=== PATIENT | female | born 1985 | race Caucasian/White ===

== ENCOUNTER 2018-10-18 11:02 | Emergency (ER) | payer OTHER ==
--- NOTE | 2018-10-18 11:18 | UC ---
Throat Pain/Nasal Quang HPI - HPI Summary HPI Summary: 32 yo female presents with right upper tooth pain for the last 3 days. She tells me that 3 days ago she had a tooth break in this area. She also admits that she has bad "gum disease" and does not see a dentist. Since 3 days ago she has had pain and swelling to the area of the fractured tooth. She is able to eat and drink, but has pain. Has been taking tylenol with good relief of pain. Denies fever, chills. - History of Current Complaint Stated Complaint: ORAL COMPLAINT Time Seen by Provider: 10/18/18 11:18 Hx Obtained From: Patient Onset/Duration: Sudden Onset Severity: Moderate Pain Intensity: 8 Pain Scale Used: 0-10 Numeric - Allergies/Home Medications Allergies/Adverse Reactions: Allergies Allergy/AdvReac Type Severity Reaction Status Date / Time Sulfa (Sulfonamide Allergy Rash Verified 10/18/18 11:28 Antibiotics) Home Medications: Home Medications Labetalol TAB* [Trandate TAB*] 1 tab PO BID 10/18/18 [History Confirmed 10/18/18 ] PMH/Surg Hx/FS Hx/Imm Hx - Additional Past Medical History Additional PMH: ovarian cancer Cardiovascular History: Hypertension - Surgical History Surgical History: Yes Surgery Procedure, Year, and Place: Tubal. C section - Family History Known Family History: Positive: Non-Contributory - Social History Occupation: Employed Full-time Lives: With Family Alcohol Use: Occasionally Substance Use Type: None Smoking Status (MU): Light Every Day Tobacco Smoker Type: Cigarettes Review of Systems All Other Systems Reviewed And Are Negative: Yes Constitutional: Positive: Negative Skin: Positive: Negative Eyes: Positive: Negative ENT: Positive: Dental Pain Respiratory: Positive: Negative Cardiovascular: Positive: Negative Neurological: Positive: Negative Psychological: Positive: Negative Physical Exam - Summary Physical Exam Summary: GENERAL: NAD. WDWN. No pain distress. SKIN: No rashes, sores, lesions, or open wounds. HEENT: Head: AT/NC Nose: Nasal mucosa pink and moist. NTTP maxillary and frontal sinus. Throat: Posterior oropharynx without exudates, erythema, or tonsillar enlargement. Uvula midline. NECK: Supple. Nontender. No lymphadenopathy. CHEST: No accessory muscle use. Breathing comfortably and in no distress. CV: Pulses intact. Cap refill <2seconds NEURO: Alert. PSYCH: Age appropriate behavior. Triage Information Reviewed: Yes Vital Signs: Vital Signs: Temp Pulse Resp BP Pulse Ox 98.1 F 84 14 167/112 98 10/18/18 11:21 10/18/18 11:21 10/18/18 11:21 10/18/18 11:21 10/18/18 11:21 Vital Signs Reviewed: Yes Dental: Positive: Percussion Tenderness @ - Tooth #2, Gross Decay/Caries @ - throughout, Dental Fracture @ - Tooth #2, Cellulitis @ - Tooth #2. Negative: Abscess @, Cervical Lymphadenopathy, Bleeding Throat Pain/Nasal Course/Dx - Course Course Of Treatment: Tooth #2 fracture with cellulitis possible early abscess. Will rx for amoxicillin and chlorhexidine rinse. She was provided with a list of local dentists and advised to f/u as soon as possible. Her BP is elevated today. She is having no headaches, dizziness, numbness, tingling, SOB, or chest pain. She take labetalol for her BP, but states she has not taken this over the past few days because it makes her nauseous and she is in pain. She has a prescription with her. I advised her to take her medication as directed and may take it with food to help prevent nausea. F/u with PCP for BP recheck within 4 weeks - go to the ED if she develops a headache, dizziness, numbness, SOB, or chest pain. Discussed with Dr. Maddox and he agrees with plan. - Differential Dx/Diagnosis Provider Diagnosis: Tooth fracture, Cellulitis of gingiva Discharge - Sign-Out/Discharge Documenting (check all that apply): Patient Departure All imaging exams completed and their final reports reviewed: No Studies - Discharge Plan Condition: Stable Disposition: HOME Prescriptions: Amoxicillin PO (*) [Amoxicillin 500 MG CAP*] 500 mg PO Q12H #14 cap Chlorhexidine MW 0.12% 473ML* [Peridex Mouth Wash 0.12%] 15 ml MT BID #1 btl Patient Education Materials: Toothache (ED) Forms: *Work Release Referrals: No Primary Care Phys,NOPCP [Primary Care Provider] - Additional Instructions: If you develop a fever, shortness of breath, chest pain, new or worsening symptoms - please call your PCP or go to the ED immediately. Your blood pressure was high at todays visit. Please see your primary provider within 4 weeks for recheck and re-evaluation. Please follow up with a dentist as soon as possible for further treatment of your dental pain - Billing Disposition and Condition Condition: STABLE Disposition: Home
[2018-10-18 11:27] VITALS: BP 167/112
== END 2018-10-18 11:41 | disposition home or self-care (01) ==
LOC: UCCORT 11:02
DX: S02.5XXA Fracture of tooth (traumatic), initial encounter for closed fracture (principal); X58.XXXA Exposure to other specified factors, initial encounter; Y92.9 Unspecified place or not applicable; K12.2 Cellulitis and abscess of mouth; K02.9 Dental caries, unspecified; I10 Essential (primary) hypertension; Z85.43 Personal history of malignant neoplasm of ovary; Z88.2 Allergy status to sulfonamides; F17.210 Nicotine dependence, cigarettes, uncomplicated
CPT/HCPCS: 99202; G0463

== ENCOUNTER 2018-11-22 07:55 | Emergency (ER) | payer OTHER ==
[2018-11-22 08:28] VITALS: BP 168/112
--- NOTE | 2018-11-22 08:58 | UC ---
Dental HPI - HPI Summary HPI Summary: dental pain x 1 month pain is 7 out of 10 constant worse with chewing and cold , better with Tylenol was seen at the [facility] one month ago , was placed on antibiotic, has an dentist appointment in 1 month no fever, no chills - History of Current Complaint Chief Complaint: UCDentalProblem Stated Complaint: MCLAIN,EAR/DENTAL COMPLAINT Time Seen by Provider: 11/22/18 08:34 Hx Obtained From: Patient Hx Last Menstrual Period: 2015 Onset/Duration: Gradual Onset, Lasting Days - 30, Still Present Severity: Moderate Pain Intensity: 10 Aggravating Factor(s): Cold, Chewing Alleviating Factor(s): OTC Meds - Allergies/Home Medications Allergies/Adverse Reactions: Allergies Allergy/AdvReac Type Severity Reaction Status Date / Time Sulfa (Sulfonamide Allergy Rash Verified 10/18/18 11:28 Antibiotics) Home Medications: Home Medications Acetaminophen [Tylenol] 2 tab PO Q2H PRN 11/22/18 [History Confirmed 11/22/18] PMH/Surg Hx/FS Hx/Imm Hx - Additional Past Medical History Additional PMH: hx of ovarian cancer Cardiovascular History: Hypertension - Surgical History Surgical History: Yes Surgery Procedure, Year, and Place: Tubal. C section - Family History Known Family History: Positive: Hypertension, Non-Contributory - Social History Alcohol Use: Weekly Substance Use Type: None Smoking Status (MU): Light Every Day Tobacco Smoker Type: Cigarettes Amount Used/How Often: 4 cigs/day Review of Systems All Other Systems Reviewed And Are Negative: Yes Constitutional: Positive: Negative Skin: Positive: Negative Eyes: Positive: Negative ENT: Positive: Dental Pain Respiratory: Positive: Negative Cardiovascular: Positive: Negative Is Patient Immunocompromised?: No Physical Exam Triage Information Reviewed: Yes Appearance: Well-Appearing, No Pain Distress, Well-Nourished Vital Signs: Initial Vital Signs Temp 98.6 F 11/22/18 08:14 Pulse 79 11/22/18 08:14 Resp 18 11/22/18 08:14 BP 168/112 11/22/18 08:14 Pulse Ox 97 11/22/18 08:14 Vital Signs Reviewed: Yes Eyes: Positive: Conjunctiva Clear ENT: Positive: Normal ENT inspection, Hearing grossly normal, Pharynx normal Dental: Positive: Percussion Tenderness @, Gross Decay/Caries @. Negative: Dental Fracture @, Abscess @, Cellulitis @, Cervical Lymphadenopathy, Bleeding Neck: Positive: Supple, Nontender, No Lymphadenopathy Respiratory: Positive: Chest non-tender, Lungs clear, Normal breath sounds Cardiovascular: Positive: RRR, No Murmur, Pulses Normal Skin Exam: Normal Dental Complaint Course/Dx - Differential Dx/Diagnosis Provider Diagnosis: Dental caries Discharge - Sign-Out/Discharge Documenting (check all that apply): Patient Departure All imaging exams completed and their final reports reviewed: No Studies - Discharge Plan Condition: Stable Disposition: HOME Prescriptions: Acetaminophen with Codeine [Acetaminophen-Cod #3 Tablet] 1 each PO Q8H PRN #20 tablet MDD 3 tabs per day PRN Reason: Pain - Severe Clindamycin Cap(NF) [Clindamycin Cap 300 mg Cap(NF)] 300 mg PO TID #30 cap Patient Education Materials: Hypertension (ED), Toothache (ED) Forms: *Work Release Referrals: No Primary Care Phys,NOPCP [Primary Care Provider] - 7 Days Additional Instructions: pleas monitor your bp daily follow up with your pcp in one week follow up with your dentist - Billing Disposition and Condition Condition: STABLE Disposition: Home
== END 2018-11-22 08:55 | disposition home or self-care (01) ==
LOC: UCCORT 07:55
DX: K02.9 Dental caries, unspecified (principal); Z88.2 Allergy status to sulfonamides; F17.210 Nicotine dependence, cigarettes, uncomplicated
CPT/HCPCS: 99212; G0463